=== PATIENT | female | born 1995 | race Caucasian/White ===

== ENCOUNTER 2022-10-29 08:45 | Inpatient (IN) | payer OTHER ==
[~2022-10-29] VITALS: Ht 175.3 cm; Wt 75.7 kg
== END 2022-11-01 11:43 | disposition home or self-care (01) | DRG 743 ==
LOC: SURH 10-30 07:00 → OB/GYN 10-30 09:11 → O/R 10-30 09:11 → OB/GYN 10-30 15:06
PROVIDERS: ADMIT Obstetrics & Gynecology; ATTEND Obstetrics & Gynecology
PROC: 0UT10ZZ Resection of Left Ovary, Open Approach (ICD-10-PCS; 2022-10-30)
PROC: 0UT60ZZ Resection of Left Fallopian Tube, Open Approach (ICD-10-PCS; principal; 2022-10-30 07:00)
DX: N83.12 Corpus luteum cyst of left ovary (principal); N70.91 Salpingitis, unspecified; N83.02 Follicular cyst of left ovary; N83.8 Other noninflammatory disorders of ovary, fallopian tube and broad ligament; N73.6 Female pelvic peritoneal adhesions (postinfective)